=== PATIENT | male | born 1975 | race Caucasian/White ===

== ENCOUNTER → 2020-06-23 | Day surgery (SDC) | payer OTHER ==
[2020-06-23 12:32] VITALS: BP 128/72
== END | disposition home or self-care (01) ==
LOC: SURG 12:21
PROVIDERS: ATTEND Anesthesiology
DX: M25.551 Pain in right hip (principal); M79.671 Pain in right foot; M79.2 Neuralgia and neuritis, unspecified
CPT/HCPCS: 99204; G0463